=== PATIENT | female | born 1945 | race Caucasian/White ===

== ENCOUNTER 2017-02-16 17:13 | Outpatient (CLI) | payer MEDICARE, OTHER ==
--- NOTE | 2017-02-16 20:43 | RAD ---
THREE VIEWS LEFT FOOT: 02/16/17 HISTORY: Contusion of third and fourth digits. Patient hit a chair leg three days ago with foot. FINDINGS: There is fusion of the first and second tarsometatarsal joints with metallic screws and hardware tra nsfixing these levels. There are degenerative changes involving the remainder of the tarsometatarsal joints. No fracture or dislocation is seen. 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 Small plantar calcaneal enthesoph yte is seen. Degenerative changes are seen involving the tarsal bones. IMPRESSION: 1. No acute osseous abnormality. 2. Postsurgical changes related to fusion of the first and second tarsometatarsal joints. POS: PASCUAL
== END 2017-02-16 17:14 | disposition home or self-care (01) ==
LOC: MADRAD 17:13
PROVIDERS: ATTEND Family Medicine
DX: S90.32XA Contusion of left foot, initial encounter (principal); Z98.890 Other specified postprocedural states